=== PATIENT | male | born 1965 | race African-American/Black ===

== ENCOUNTER → 2021-04-01 18:47 | Outpatient (CLI) | payer OTHER, SELFPAY ==
--- NOTE | 2021-04-01 18:52 | DI.MRI.S_ITS ---
PROCEDURE: MR KNEE RT WO CON INDICATIONS: PAIN IN UNSPECIFIED KNEE TECHNIQUE: Noncontrast sagittal PD fast spin echo and T2 fast spin echo with fat saturation, sagittal 3-D FLASH with fat saturation; coronal T1 spin echo and PD fast spin echo with fat saturation, and axial PD fast spin echo with fat saturation through the knee. COMPARISON: None. FINDINGS: Image quality: Excellent. Menisci: Complex tear involving posterior horn of medial meniscus is seen extending to both superior and inferior articulating surfaces. There is peripheral displacement of medial meniscus bowing medial collateral ligament the lateral meniscus is intact. The meniscal root ligaments appear intact. Cruciate ligaments: The anterior and posterior cruciate ligaments appear intact. Medial structures: Moderate grade MCL sprain/partial-thickness tear is seen. The posterior oblique ligament, semimembranosus tendon insertions, oblique popliteal ligament, and meniscocapsular junction appear intact. Visualized portions of the pes anserinus tendons appear normal. No abnormal bursal fluid. Lateral structures: The lateral collateral ligament, long and short heads of the biceps femoris tendon appear intact. The popliteus tendon appears normal; the popliteofibular ligament appears intact. The posterosuperior and anteroinferior popliteomeniscal fascicles appear intact. The arcuate and fabellofibular ligaments appear intact, on either side of the lateral inferior geniculate artery. Iliotibial band appears normal. Anterior structures: The quadriceps and patellar tendons appear intact. Patellar alignment is normal. No femoral trochlear dysplasia or ventral trochlear prominence. No edema in the infrapatellar fat pad. Bones and cartilage: Krne-ma-redfxaah tricompartmental osteoarthritis and chondromalacia is seen more prominent in lateral portion of patellofemoral compartment with 4 millimeter osteochondral lesion involving posterior and lateral aspect of patella and surrounding marrow edema. No fracture or dislocation. Joint space: There is moderate joint effusion is seen, no gross intra-articular loose body. There is a small popliteal cyst. Normal appearing synovial plicae are incidentally noted. IMPRESSION: 1. 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 No fracture or dislocation. Moderate joint effusion, no gross loose body. 2. Complex tear involving posterior horn of medial meniscus extending to both superior and inferior articulating surfaces. No focal lateral meniscal tear. 3. Cruciate ligaments are intact. Low to moderate grade MCL sprain/partial-thickness tear. Dictated by: Eros Oliveira M.D. on 04/02/2021 at 9:30 Approved by: Eros Oliveira M.D. on 04/02/2021 at 10:04
== END ==
PROVIDERS: Referring Provider Family Medicine; Visit Provider Family Medicine
DX: S83.231A Complex tear of medial meniscus, current injury, right knee, initial encounter (principal); S83.411A Sprain of medial collateral ligament of right knee, initial encounter; M17.11 Unilateral primary osteoarthritis, right knee; M94.261 Chondromalacia, right knee; M25.561 Pain in right knee
CPT/HCPCS: 73721

== ENCOUNTER 2022-11-03 12:12 | Day surgery (SDC) | payer OTHER, SELFPAY ==
[2022-11-03] VITALS (7 sets, daily range): BP systolic 85–123; BP diastolic 57–86; PULSE 56–76; RESP 16–19; TEMP 36.3–36.4; O2SAT 79–99; BMI 30.2
[2022-11-03] MEDS: LACTATED RINGERS 1,000 ML 42 ML IV (12:50)
--- NOTE | 2022-11-03 14:07 | PM.PREOP ---
Pre-operative Note COVID-19 COVID-19 status: Not tested Interval Note History & Physical reviewed/Exam performed by Physician: Yes Changes to H&P: No ASA Class (for procedural sedation): II
--- NOTE | 2022-11-03 14:46 | P.OP.COLON_ITS ---
Operative Date/Time/Diagnoses Date of procedure: 11/03/22 Time of procedure: 14:46 Pre-op diagnosis: Rectal bleeding and history of polyps Post-op diagnosis: same Procedure & Clinicians Study performed: Colonoscopy with rubber-band ligation Same procedure as scheduled: Yes Surgeon: Jerod Kumar Procedure Notes Procedure in detail: Surgeon: Jerod Kumar MD [facility]: The patient was brought to the endoscopy suite, placed in left lateral decubitus position. The patient was connected to monitoring devices. A time-out was performed. Sedation was administered. Once the patient was adequately sedated, a digital rectal exam was performed and was normal. The scope was then inserted and advanced to the cecum where the appendiceal orifice was identified and photographed. The scope was then slowly withdrawn over greater than 6 minutes. The mucosa was thoroughly inspected. No abnormalities were found. The scope was retroflexed in the rectum. Internal hemorrhoids were noted. The scope was straightened and removed. Rubber-band ligation was performed using the anoscope a rubber band was placed in the left lateral position in the right anterior position. The patient was awakened and brought to recovery. Scope withdrawal time: 8 minutes Sedation time: 14 minutes EBL: 2 mL Findings: Internal hemorrhoids Post-procedure Recommendations: Colonoscopy in 10 years Disposition: PACU
== END 2022-11-03 15:20 | disposition home or self-care (01) ==
PROVIDERS: Referring Provider Surgery; Visit Provider Surgery
PROC: 0DJD8ZZ Inspection of Lower Intestinal Tract, Via Natural or Artificial Opening Endoscopic (ICD-10-PCS; CPT 45378; principal; 2022-11-03 13:30)
DX: K62.5 Hemorrhage of anus and rectum (principal); Z86.010 Personal history of colon polyps; K64.9 Unspecified hemorrhoids
CPT/HCPCS: 45378; 46221; J2704